=== PATIENT | male | born 1985 | race Two or more races ===

== ENCOUNTER 2017-07-31 11:18 | Emergency (ER) | payer OTHER ==
[~2017-07-31] VITALS: Ht 180.3 cm; Wt 95.4 kg
[2017-07-31 11:46] VITALS: BP 138/75
[2017-07-31] MEDS ORDERED: IBUPROFEN 800 MG TAB PO ONE (12:00)
== END 2017-07-31 12:20 | disposition home or self-care (01) ==
LOC: ER 11:18
DX: S92.241A Displaced fracture of medial cuneiform of right foot, initial encounter for closed fracture (principal); W22.8XXA Striking against or struck by other objects, initial encounter; Y93.89 Activity, other specified; Y99.8 Other external cause status; Y92.89 Other specified places as the place of occurrence of the external cause
CPT/HCPCS: 29515; 73630